=== PATIENT | female | born 1950 | race Caucasian/White ===

== ENCOUNTER 2016-11-08 22:32 | Emergency (ER) | payer MEDICARE, MEDICAID ==
[~2016-11-08] VITALS: Ht 165.1 cm; Wt 142.4 kg
[~2016-11-08 22:32] MED LIST: ACETAMINOPHEN A PO; ADVAIR DISKUS 21 DSK PO; APAP PO; AQUAZIDE H50 MG PO; BENADRYL25 MG PO; BENTYL20 MG PO; BIAXIN500 MG PO; CELEXA10 MG PO; CIPRO500 MG PO; CLONIDINE HCL0.1 MG PO; COUMADIN10 M1 PO; COUMADIN2 MG; COUMADIN3 M1; Coumadin3 MG PO; DILTIAZEM90 MG PO; DOXYCYCLINE100 M3 PO; DUONEB 3 MG/3 ML3 M1 INH; EES400 MG PO; FLUTICAS P0.05 MG/AC NAS; HYDR25T PO; HYDRODIURIL25 MG PO; LASIX40 MG PO; LORATADINE10 MG PO; LOVENOX150 MG/1 M SC; MAGNESIUM200 MG PO; MEDROL DOSEPAK4 MG PO; MOTION-TIME25 M2 PO; NEXIUM40 MG PO; PERCOCET 325 MG1 TA2 PO; POTASSIUM CHLO10 MEQ PO; POTASSIUM20 MEQ PO; PRADAXA150 MG PO; PRED-PAK 455 MG PO; PREDNISONE10 MG PO; PRILOSEC20 M2 PO; PRILOSEC20 MG PO; PRILOSEC40 M1 PO; PROAIR HFA0.09 MG/AC IH; PROAIR HFA8.5 GM PO; PROVERA10 MG PO; PROVERA2.5 MG PO; REQUIP0.5 MG PO; SPIRIVA18 MCG IH; SYNTHROID,LEVO25 MCG PO; TRAMADOL PO; VENTOLIN,PR2 MG/5 ML PO; VIBRAMYCIN100 MG PO; VICODIN 5/500 505 MG PO; VITAMIN D PO; ZANTAC 150150 MG PO; ZITHROMAX Z PA250 MG PO; ZOFRAN ODT4 MG SL; [UNRECOGNIZED DRUG - OTHER] PO
[2016-11-08 22:56] VITALS: BP 180/90
[2016-11-08] MEDS ORDERED: MAGNESIUM250 M1 PO (22:59)
[2016-11-08] MEDS ORDERED: FER-IRON75 MG/0.6 PO (23:00)
[2016-11-08] MEDS ORDERED: TYLENOL WITH CO1 TA1 PO (23:01)
[2016-11-08] MEDS ORDERED: CARAFATE1 G1 PO (23:01)
[2016-11-08 23:34] LABS: BILIRUBIN NEGATIVE (NEGATIVE); BLOOD NEGATIVE (NEGATIVE); CLARITY CLEAR (CLEAR); COLOR YELLOW (YELLOW); GLUCOSE NEGATIVE (NEGATIVE); KETONE NEGATIVE (NEGATIVE); LEUKO ESTERASE NEGATIVE (NEGATIVE); NITRITE NEGATIVE (NEGATIVE); PROTEIN NEGATIVE (NEGATIVE); UROBILINOGEN 0.2 E.U./dl (0.2-1.0)
[2016-11-08 23:42] LABS: BASO # 0.1 10*3/uL (0.0-0.1); BASO % 0.3 % (0.0-1.0); EOS # 0.1 10*3/uL (0.0-0.4); EOS % 0.5 % (1.0-4.0); HEMATOCRIT 41.8 % (37.0-47.0); HEMOGLOBIN 13.1 g/dl (12.0-16.0); IG # 0.1 10*3/uL (0.0-0.1); LYMPH # 2.5 10*3/uL (1.3-4.4); LYMPH % 16.4 % (27.0-41.0); MEAN CELL VOLUME 86.4 fl (81.0-99.0); MEAN CORPUSCULAR HGB 27.1 pg (27.0-31.0); MEAN CORPUSCULAR HGB CONC 31.3 g/dl (33.0-37.0); MEAN PLATELET VOLUME 9.7 fl (9.6-12.3); MONO # 1.1 10*3/uL (0.1-1.0); NEUT # 11.3 10*3/uL (2.3-7.9); NEUT % 75.2 % (47.0-73.0); PLATELET COUNT AUTOMATED 318 10*3/uL (130-400); RED BLOOD COUNT 4.84 10*6/uL (4.10-5.10); RED CELL DISTRI WIDTH 15.9 % (0-14.5); WHITE BLOOD COUNT 15.1 10*3/uL (4.8-10.8)
[2016-11-08 23:50] LABS: EPITHELIAL CELLS 15-20
[2016-11-08 23:51] LABS: RBC 0-2 rbc/hpf (0-2); URINE REFLEX COMMENT NO (NO)
[2016-11-09] MEDS ORDERED: Orphenadrine C100 MG PO (01:59)
[2016-11-09] MEDS ORDERED: PREDNISONE20 M1 PO (01:59)
[2016-11-09] MEDS ORDERED: NORCO 5-325 TA1 EACH PO (02:01)
== END 2016-11-09 02:48 | disposition home or self-care (01) ==
LOC: ED 22:32
PROVIDERS: Emergency Medicine Emergency Medical Services
DX: M54.31 Sciatica, right side (principal); J44.9 Chronic obstructive pulmonary disease, unspecified; G89.29 Other chronic pain; Z88.0 Allergy status to penicillin; Z88.1 Allergy status to other antibiotic agents; Z88.8 Allergy status to other drugs, medicaments and biological substances; Z79.899 Other long term (current) drug therapy

== ENCOUNTER 2017-01-05 18:12 | Inpatient (IN) | payer MEDICARE, MEDICAID ==
[2017-01-05] VITALS (9 sets, daily range): BP systolic 136–177; BP diastolic 71–108
[~2017-01-05] VITALS: Ht 165.1 cm; Wt 152.1 kg
--- NOTE | ~2017-01-05 | CON ---
[place], [place] REPORT OF CONSULTATION NAME: MAURO TOWNSEND UNIT #: [id number] ROOM: 402 DOCTOR: BALDEMAR RIOS MDHISH BIRTHDATE: [birth year] DOS: HISTORY OF PRESENT ILLNESS: I was not aware of this consultation, nobody had called me, came in my list today and I am seeing this patient. A 66-year-old female, very well known to me with a known history of deep venous thrombosis in the past, admitted with some atypical chest discomfort and also patient was severely hypertensive. Right now, her pressure is also elevated beyond 160/90, initially was 200/100 and she was having severe headache. She does have a low grade fever and wheezing and lightheaded, pain in the left precardium. She had a CTA, showed no evidence of pulmonary embolism. It showed small hiatal hernia, aortic stent ____. PAST MEDICAL HISTORY: Significant for DVT, history of pulmonary embolism, hypertension, protein-calorie malnutrition, morbid obesity. PAST SURGICAL HISTORY: History of right rotator cuff, thoracic aortic aneurysm repair. SOCIAL HISTORY: Not an alcoholic. Former smoker. FAMILY HISTORY: Positive for coronary artery disease. ALLERGIES: ENALAPRIL and PENICILLIN. HOME MEDICATIONS: Clonidine, diltiazem, magnesium, potassium, sucralfate and Spiriva. REVIEW OF SYSTEMS: CONSTITUTIONAL: No fever. No chills. HEENT: No visual disturbances or hearing problems. CARDIOVASCULAR: Does have chest discomfort and palpitations. RESPIRATORY: Positive for shortness of breath. GASTROINTESTINAL: No nausea. No vomiting. GENITOURINARY: No dysuria, hematuria. PHYSICAL EXAMINATION: VITAL SIGNS: Blood pressure was 170/80. HEENT: Unremarkable. NECK: Supple. No JVD. No thyromegaly. No lymphadenopathy. LUNGS: Clear. HEART: Sounds are regular. ABDOMEN: Obese. NEUROLOGIC: Stable. LABORATORY DATA: Electrolytes are normal. INR is 1.2. Hemoglobin ____, hematocrit 32.5. Chest x-ray showed aortic stent graft patent with emphysema. EKG, sinus with nonspecific ST-T changes. IMPRESSION: The patient with morbid obesity, hypertension, with thoracic aortic aneurysm repair, prior history of pulmonary embolism, with atypical chest [place], [place] REPORT OF CONSULTATION NAME: MAURO TOWNSEND UNIT #: [id number] ROOM: [facility] DOCTOR: RENETTA RIOS MD BIRTHDATE: [birth year] discomfort. RECOMMENDATIONS: Increase Catapres to 0.2 b.i.d. We will set her up for a Lexiscan Cardiolite stress test because of her risk factors and I will follow up. RENETTA RIOS MD CM:CONSTR:REPORT OF CONSULTATION 0800 01/07/17 1343 interface
--- NOTE | ~2017-01-05 | EKG ---
[place], [place] ELECTROCARDIOGRAM REPORT NAME: MAURO TOWNSEND UNIT #: [id number] ROOM: 402 DOCTOR: RENETTA RIOS MD BIRTHDATE: [birth year] DOS: 01/05/2017 TIME: 18:47:38 Normal sinus rhythm, normal axis, normal intervals. Nonspecific ST-T changes. RENETTA RIOS MD CM:EKGRPT:ELECTROCARDIOGRAM REPORT [id number] RENETTA RIOS MD
[~2017-01-05 18:12] MED LIST changes: +CARAFATE1 G1 PO; +FER-IRON75 MG/0.6 PO; +MAGNESIUM250 M1 PO; +NORCO 5-325 TA1 EACH PO; +Orphenadrine C100 MG PO; +PREDNISONE20 M1 PO; +PROAIR HFA8.5 GM INH; +TYLENOL WITH CO1 TA1 PO; -VENTOLIN,PR2 MG/5 ML PO
[2017-01-05] MEDS ORDERED: Synthroid,Levo50 MCG PO (18:33)
[2017-01-05 18:45] LABS: BASO % 0.4 % (0.0-1.0); EOS # 0.1 10*3/uL (0.0-0.4); EOS % 0.9 % (1.0-4.0); HEMATOCRIT 38.6 % (37.0-47.0); HEMOGLOBIN 12.5 g/dl (12.0-16.0); IG # 0.1 10*3/uL (0.0-0.1); LYMPH # 1.6 10*3/uL (1.3-4.4); LYMPH % 16.9 % (27.0-41.0); MEAN CELL VOLUME 86.4 fl (81.0-99.0); MEAN CORPUSCULAR HGB CONC 32.4 g/dl (33.0-37.0); MEAN PLATELET VOLUME 9.8 fl (9.6-12.3); MONO # 0.9 10*3/uL (0.1-1.0); MONO % 9.9 % (3.0-9.0); NEUT # 6.6 10*3/uL (2.3-7.9); NEUT % 71.4 % (47.0-73.0); PLATELET COUNT AUTOMATED 322 10*3/uL (130-400); RED BLOOD COUNT 4.47 10*6/uL (4.10-5.10); RED CELL DISTRI WIDTH 16.3 % (0-14.5); WHITE BLOOD COUNT 9.3 10*3/uL (4.8-10.8)
[2017-01-05 18:59] LABS: INTERNATIONAL NORM RATIO 1.2 (2.0-3.5); PROTHROMBIN TIME 12.5 SECONDS (9.0-12.4)
[2017-01-05 19:03] LABS: ALBUMIN 3.1 gm/dl (3.1-4.5); ALKALINE PHOSPHATASE 128 U/L (45-117); BILIRUBIN, TOTAL 0.3 mg/dl (0.2-1.0); BUN 15 mg/dl (7-24); CARBON DIOXIDE 29 mmol/L (21-32); CHLORIDE 106 mmol/L (98-107); EST GLOM FILT AFRICAN AMERICAN > 60 ml/min; GLUCOSE 102 mg/dL (65-99); MAGNESIUM 2.2 mg/dL (1.5-2.1); POTASSIUM 3.7 mmol/L (3.5-5.1); SGOT/AST 14 IU/L (3-35); SGPT/ALT 21 U/L (12-78); SODIUM 142 mmol/L (136-145); TOTAL PROTEIN 7.2 gm/dL (6.4-8.2)
[2017-01-05 19:04] LABS: TROPONIN I < 0.015 ng/ml (<0.045)
[2017-01-05] MEDS ORDERED: FEROSUL325 MG PO (23:55)
[2017-01-06 06:19] LABS: BASO % 0.4 % (0.0-1.0); EOS # 0.1 10*3/uL (0.0-0.4); EOS % 0.9 % (1.0-4.0); HEMATOCRIT 41.6 % (37.0-47.0); HEMOGLOBIN 12.9 g/dl (12.0-16.0); LYMPH # 1.6 10*3/uL (1.3-4.4); LYMPH % 17.9 % (27.0-41.0); MEAN CELL VOLUME 87.8 fl (81.0-99.0); MEAN CORPUSCULAR HGB 27.2 pg (27.0-31.0); MEAN PLATELET VOLUME 9.8 fl (9.6-12.3); MONO # 0.7 10*3/uL (0.1-1.0); NEUT # 6.5 10*3/uL (2.3-7.9); NEUT % 72.4 % (47.0-73.0); PLATELET COUNT AUTOMATED 336 10*3/uL (130-400); RED BLOOD COUNT 4.74 10*6/uL (4.10-5.10); RED CELL DISTRI WIDTH 16.5 % (0-14.5)
[2017-01-06 06:50] LABS: PROTHROMBIN TIME 11.1 SECONDS (9.0-12.4)
[2017-01-06 06:51] LABS: ALBUMIN 3.2 gm/dl (3.1-4.5); ALKALINE PHOSPHATASE 128 U/L (45-117); BILIRUBIN, TOTAL 0.2 mg/dl (0.2-1.0); BUN 13 mg/dl (7-24); CARBON DIOXIDE 28 mmol/L (21-32); CHLORIDE 106 mmol/L (98-107); EST GLOM FILT AFRICAN AMERICAN > 60 ml/min; FREE T4 0.91 ng/dl (0.76-1.46); GLUCOSE 106 mg/dL (65-99); MAGNESIUM 2.3 mg/dL (1.5-2.1); PHOSPHOROUS 3.1 mg/dL (2.5-4.9); POTASSIUM 3.9 mmol/L (3.5-5.1); SGOT/AST 14 IU/L (3-35); SGPT/ALT 21 U/L (12-78); SODIUM 141 mmol/L (136-145); TOTAL PROTEIN 7.7 gm/dL (6.4-8.2)
[2017-01-06 06:55] LABS: THYROID STIM HORMONE (HS) 0.736 uIU/ml (0.358-4.75)
[2017-01-06 07:05] LABS: HEMOGLOBIN A1c 6.9 % (4.8-5.6)
[2017-01-06 08:00] VITALS: BP 164/82
[2017-01-06 12:00] VITALS: BP 131/58
[2017-01-06 16:00] VITALS: BP 118/58
[2017-01-06 20:00] VITALS: BP 134/62
[2017-01-07] VITALS: BP 130/78
[2017-01-07 06:52] LABS: BASO % 0.4 % (0.0-1.0); EOS # 0.1 10*3/uL (0.0-0.4); HEMOGLOBIN 11.9 g/dl (12.0-16.0); LYMPH # 1.6 10*3/uL (1.3-4.4); LYMPH % 20.3 % (27.0-41.0); MEAN CELL VOLUME 87.7 fl (81.0-99.0); MEAN CORPUSCULAR HGB 28.2 pg (27.0-31.0); MEAN CORPUSCULAR HGB CONC 32.2 g/dl (33.0-37.0); MEAN PLATELET VOLUME 9.9 fl (9.6-12.3); MONO # 0.6 10*3/uL (0.1-1.0); MONO % 7.2 % (3.0-9.0); NEUT # 5.4 10*3/uL (2.3-7.9); NEUT % 70.7 % (47.0-73.0); PLATELET COUNT AUTOMATED 287 10*3/uL (130-400); RED BLOOD COUNT 4.22 10*6/uL (4.10-5.10); RED CELL DISTRI WIDTH 16.5 % (0-14.5); WHITE BLOOD COUNT 7.6 10*3/uL (4.8-10.8)
[2017-01-07 07:22] LABS: BUN 12 mg/dl (7-24); CARBON DIOXIDE 31 mmol/L (21-32); CHLORIDE 104 mmol/L (98-107); EST GLOM FILT AFRICAN AMERICAN > 60 ml/min; GLUCOSE 125 mg/dL (65-99); POTASSIUM 4.2 mmol/L (3.5-5.1); SODIUM 142 mmol/L (136-145)
[2017-01-07 08:00] VITALS: BP 164/90
[2017-01-07 12:00] VITALS: BP 156/82
[2017-01-07] MEDS ORDERED: CLONIDINE HCL0.2 MG PO (12:46)
[2017-01-07] MEDS ORDERED: D-1000 185 MG-11 TAB PO (12:47)
== END 2017-01-07 13:40 | disposition home or self-care (01) | DRG 206 ==
LOC: ED 18:12 → EDHOLD 22:23 → 4E 22:23
PROVIDERS: Emergency Medicine; Family Medicine; Internal Medicine Nephrology
DX: M94.0 Chondrocostal junction syndrome [Tietze] (principal); E44.0 Moderate protein-calorie malnutrition; R65.10 Systemic inflammatory response syndrome (SIRS) of non-infectious origin without acute organ dysfunction; Z68.43 Body mass index [BMI] 50.0-59.9, adult; E83.41 Hypermagnesemia; E66.01 Morbid (severe) obesity due to excess calories; J44.9 Chronic obstructive pulmonary disease, unspecified; R73.9 Hyperglycemia, unspecified; I10 Essential (primary) hypertension; E03.9 Hypothyroidism, unspecified; K21.9 Gastro-esophageal reflux disease without esophagitis; K44.9 Diaphragmatic hernia without obstruction or gangrene; G25.81 Restless legs syndrome; Z88.0 Allergy status to penicillin; Z88.1 Allergy status to other antibiotic agents; Z88.8 Allergy status to other drugs, medicaments and biological substances; Z86.718 Personal history of other venous thrombosis and embolism; Z86.711 Personal history of pulmonary embolism; Z90.721 Acquired absence of ovaries, unilateral; Z87.891 Personal history of nicotine dependence; Z82.49 Family history of ischemic heart disease and other diseases of the circulatory system; Z79.51 Long term (current) use of inhaled steroids; Z79.899 Other long term (current) drug therapy; Z86.79 Personal history of other diseases of the circulatory system; E55.9 Vitamin D deficiency, unspecified

== ENCOUNTER → 2017-01-17 | Outpatient (CLI) | payer MEDICARE, MEDICAID ==
[~2017-01-17] MED LIST changes: +CLONIDINE HCL0.2 MG PO; +D-1000 185 MG-11 TAB PO; +FEROSUL325 MG PO; +Synthroid,Levo50 MCG PO
--- NOTE | ~2017-01-17 | ST ---
[place], [place] EXERCISE STRESS TEST REPORT NAME: MAURO TOWNSEND UNIT #: [id number] ROOM: DOCTOR: RENETTA RIOS MD BIRTHDATE: [birth year] DOS: 01/17/2017 LEXISCAN PORTION OF THE LEXISCAN CARDIOLITE Baseline cardiogram, sinus rhythm with nonspecific ST-T changes, 0.4 mg of Lexiscan, duration of 10 seconds of a 1-minute test duration with Lexiscan, no new EKG changes. The patient had some nausea and abdominal sensation, but no obvious chest pain, no EKG changes. Blood pressure and heart rate response was normal. Nuclear images will be reported separately. RENETTA RIOS MD CM:STRESS:EXERCISE STRESS TEST REPORT [id number] NOLVIA RIOS MD
== END | disposition home or self-care (01) ==
LOC: CARD 02:11
DX: R53.81 Other malaise (principal); R07.2 Precordial pain

== ENCOUNTER → 2017-02-14 | Outpatient (CLI) | payer MEDICARE, MEDICAID ==
[2017-02-14 11:14] LABS: BASO % 0.4 % (0.0-1.0); EOS # 0.1 10*3/uL (0.0-0.4); EOS % 0.5 % (1.0-4.0); HEMATOCRIT 42.2 % (37.0-47.0); HEMOGLOBIN 13.1 g/dl (12.0-16.0); LYMPH # 1.7 10*3/uL (1.3-4.4); LYMPH % 18.9 % (27.0-41.0); MEAN CELL VOLUME 89.6 fl (81.0-99.0); MEAN CORPUSCULAR HGB 27.8 pg (27.0-31.0); MEAN PLATELET VOLUME 10.1 fl (9.6-12.3); MONO # 0.5 10*3/uL (0.1-1.0); MONO % 5.9 % (3.0-9.0); NEUT # 6.7 10*3/uL (2.3-7.9); NEUT % 73.8 % (47.0-73.0); PLATELET COUNT AUTOMATED 289 10*3/uL (130-400); RED BLOOD COUNT 4.71 10*6/uL (4.10-5.10); RED CELL DISTRI WIDTH 15.2 % (0-14.5); WHITE BLOOD COUNT 9.2 10*3/uL (4.8-10.8)
[2017-02-14 11:29] LABS: ALKALINE PHOSPHATASE 143 U/L (45-117); BUN 20 mg/dl (7-24); CHLORIDE 103 mmol/L (98-107); CHOLESTEROL 170 mg/dL (<200); CREATININE 0.82 mg/dL (0.55-1.02); HDL CHOLESTEROL 79 mg/dl (40-60); LDL CHOLESTEROL 76 mg/dL (9-159); POTASSIUM 4.1 mmol/L (3.5-5.1); SGOT/AST 12 IU/L (3-35); SGPT/ALT 30 U/L (12-78); SODIUM 141 mmol/L (136-145); TRIGLYCERIDES 77 mg/dl (<150); VLDL CHOLESTEROL 15 mg/dL (6-40)
== END | disposition home or self-care (01) ==
LOC: LAB 10:28
PROVIDERS: Nurse Practitioner Family
DX: E03.9 Hypothyroidism, unspecified (principal); E78.4 Other hyperlipidemia; I10 Essential (primary) hypertension

== ENCOUNTER → 2017-03-16 | Outpatient (CLI) | payer MEDICARE, MEDICAID ==
[2017-03-16 15:33] LABS: BASO % 0.6 % (0.0-1.0); BILIRUBIN NEGATIVE (NEGATIVE); BLOOD NEGATIVE (NEGATIVE); CLARITY CLOUDY (CLEAR); COLOR YELLOW (YELLOW); EOS # 0.1 10*3/uL (0.0-0.4); EOS % 0.7 % (1.0-4.0); GLUCOSE NEGATIVE (NEGATIVE); HEMOGLOBIN 12.8 g/dl (12.0-16.0); KETONE NEGATIVE (NEGATIVE); LEUKO ESTERASE NEGATIVE (NEGATIVE); LYMPH # 1.6 10*3/uL (1.3-4.4); LYMPH % 21.7 % (27.0-41.0); MEAN CELL VOLUME 89.5 fl (81.0-99.0); MEAN CORPUSCULAR HGB 28.6 pg (27.0-31.0); MEAN PLATELET VOLUME 9.6 fl (9.6-12.3); MONO # 0.5 10*3/uL (0.1-1.0); NEUT % 69.7 % (47.0-73.0); NITRITE NEGATIVE (NEGATIVE); PLATELET COUNT AUTOMATED 307 10*3/uL (130-400); RED BLOOD COUNT 4.47 10*6/uL (4.10-5.10); RED CELL DISTRI WIDTH 14.3 % (0-14.5); SPECIFIC GRAVITY >= 1.030 (1.005-1.030); UROBILINOGEN 0.2 E.U./dl (0.2-1.0); WHITE BLOOD COUNT 7.1 10*3/uL (4.8-10.8)
[2017-03-16 15:42] LABS: BACTERIA 2+; EPITHELIAL CELLS 16-20; MUCOUS TRACE; RBC 0-2 rbc/hpf (0-2)
[2017-03-16 15:59] LABS: BUN 13 mg/dl (7-24); CHLORIDE 102 mmol/L (98-107); CREATININE 0.98 mg/dL (0.55-1.02); MAGNESIUM 2.2 mg/dL (1.5-2.1); POTASSIUM 3.7 mmol/L (3.5-5.1); SODIUM 140 mmol/L (136-145); URIC ACID 6.1 mg/dL (2.6-6.0)
[2017-03-17 09:06] LABS: CREATININE,URINE 180.9 mg/dL (Not Estab.); MICRO ALBUMIN/CRE RATIO 9.7 (0.0-30.0)
== END | disposition home or self-care (01) ==
LOC: LAB 14:59
PROVIDERS: Internal Medicine Nephrology
DX: I10 Essential (primary) hypertension (principal); E87.6 Hypokalemia; E87.79 Other fluid overload; R80.9 Proteinuria, unspecified; E55.9 Vitamin D deficiency, unspecified; N17.9 Acute kidney failure, unspecified

== ENCOUNTER 2017-04-08 00:47 | Inpatient (IN) | payer MEDICARE, MEDICAID ==
[2017-04-08] VITALS (7 sets, daily range): BP systolic 110–144; BP diastolic 52–79
[~2017-04-08] VITALS: Ht 162.5 cm; Wt 150.3 kg
[2017-04-08 01:05] LABS: BASO % 0.5 % (0.0-1.0); EOS # 0.1 10*3/uL (0.0-0.4); EOS % 0.6 % (1.0-4.0); HEMATOCRIT 38.8 % (37.0-47.0); HEMOGLOBIN 12.4 g/dl (12.0-16.0); LYMPH # 0.8 10*3/uL (1.3-4.4); LYMPH % 9.6 % (27.0-41.0); MEAN CELL VOLUME 87.4 fl (81.0-99.0); MEAN CORPUSCULAR HGB 27.9 pg (27.0-31.0); MEAN PLATELET VOLUME 9.5 fl (9.6-12.3); MONO # 0.4 10*3/uL (0.1-1.0); MONO % 4.4 % (3.0-9.0); NEUT # 6.9 10*3/uL (2.3-7.9); NEUT % 84.5 % (47.0-73.0); PLATELET COUNT AUTOMATED 351 10*3/uL (130-400); RED BLOOD COUNT 4.44 10*6/uL (4.10-5.10); RED CELL DISTRI WIDTH 14.3 % (0-14.5); WHITE BLOOD COUNT 8.1 10*3/uL (4.8-10.8)
--- NOTE | 2017-04-08 01:09 | NUR ---
CRITICAL LA OF 2.[address] GAMEZ
[2017-04-08 01:14] LABS: INTERNATIONAL NORM RATIO 1.2 (2.0-3.5)
[2017-04-08 01:23] LABS: ALKALINE PHOSPHATASE 118 U/L (45-117); BUN 7 mg/dl (7-24); CHLORIDE 103 mmol/L (98-107); CREATININE 0.88 mg/dL (0.55-1.02); LIPASE 101 U/L (73-393); POTASSIUM 4.2 mmol/L (3.5-5.1); SGOT/AST 12 IU/L (3-35); SGPT/ALT 16 U/L (12-78); SODIUM 139 mmol/L (136-145); TOTAL PROTEIN 7.2 gm/dL (6.4-8.2); TROPONIN I < 0.015 ng/ml (<0.045)
[2017-04-08 01:28] LABS: ABG BASE EXCESS 2.1 mmol/L (-2.0-2.0); ABG HCO3 26.1 mmol/l (22-26); ABG O2 SATURATION 99.1 % (95-97); ARTERIAL BLOOD GAS PCO2 39.3 mmHg (35-45); ARTERIAL BLOOD GAS PH 7.434 (7.35-7.45)
--- NOTE | 2017-04-08 01:51 | NUR ---
PATIENT GIVEN A WARM BLANKET. NO OTHER NEEDS AT THIS TIME
--- NOTE | 2017-04-08 02:45 | NUR ---
A 66, admitted to , under the services of MONIQUE Dahl DO with a diagnosis of COPD. Chief complaint is SHORTNESS OF BREATH. Patient arrived via bed from ER. Monitor applied. Initial assessment completed. Vital signs taken and recorded. MONIQUE DAHL DO notified of admission to the unit. Orders received. See assessment for past medical history, medications and allergies. Patient and/or family oriented to unit. [facility]. Clothing/patient valuable form completed. TANESHA ESCUDERO
--- NOTE | 2017-04-08 03:01 | NUR ---
MED REC UPDATED PER LIST PROVIDED BY PATIENT
--- NOTE | 2017-04-08 03:30 | NUR ---
DR. HOLLIS CALLED AND ASKED ABOUT BOLUS X3 ORDER. DR HOLLIS CLEARIFIED ORDER AND STATED DUE TO HER SIZE AND PROTOCAL THAT THE ORDER WAS CORRECT. WILL ASSESS PATIENT DURING EACH BOLUS.
--- NOTE | 2017-04-08 08:00 | NUR ---
PT SITTING AT SIDE OF BED. 3RD IV BOLUS BAG INFUSING. PT STATE FINGERS ARE STARTING TO FEEL A "LITTLE TIGHT". WILL CONTINUE TO MONITOR FOR FLUID OVERLOAD. PT STATES BREATHING HAS IMPROVED SINCE ADMISSION, COUGHING SOME THIS MORNING NON PRODUCTIVE AT THIS TIME. PT COMPLAINS OF HEADACHE, HOWEVER WISHES TO WAIT UNTIL AFTER BREAKFAST TO TAKE ANY TYLENOL. PT STATES NO OTHER NEEDS AT THIS TIME.
--- NOTE | 2017-04-08 08:31 | NUR ---
Shift chart check completed.
--- NOTE | 2017-04-08 09:43 | NUR ---
pt complains of headache, tylenol given. see mar. will monitor for effectiveness.
--- NOTE | 2017-04-08 09:45 | NUR ---
resident in to see patient. notified that patient complains of hand edema. aware received 3 liters ns bolus and now has ivf at 80/hour
--- NOTE | 2017-04-08 10:45 | NUR ---
PT STATE TYLENOL EFFECTIVE FOR HEADACHE
--- NOTE | 2017-04-08 12:54 | NUR ---
PT COMPLAINS OF ANXIETY AND MUSCLE ACHES, PRN GIVEN. SEE MAR
--- NOTE | 2017-04-08 13:28 | NUR ---
PT SITTING AT SIDE OF BED. IVF STOPPED PER ORDER. PT AWARE TO NOTIFY STAFF IF EDEMA IN HANDS WORSENS. SLIGHT EDEMA NOTED IN LOWER EXTREMITIES, PT STATED SHE WILL ELEVATE LEGS IN BED FOR NOW. PT STATES NO NEEDS AT THIS TIME.
--- NOTE | 2017-04-08 20:22 | NUR ---
prn zofran given for pt report nausea.
--- NOTE | 2017-04-08 21:00 | NUR ---
prn tylenol given for 6/10 chest soreness r/t coughing.
--- NOTE | 2017-04-08 21:00 | NUR ---
prn restoril given for sleep
--- NOTE | 2017-04-08 21:23 | NUR ---
prn zofran effective for nausea, pt denies nausea.
--- NOTE | 2017-04-08 22:00 | NUR ---
prn restoril effective, pt resting comfortably.
--- NOTE | 2017-04-08 22:00 | NUR ---
prn pain med effective, pt rates her pain 3/10.
[2017-04-09] VITALS: BP 141/54
[2017-04-09 06:04] LABS: HEMATOCRIT 35.9 % (37.0-47.0); HEMOGLOBIN 11.2 g/dl (12.0-16.0); MEAN CELL VOLUME 88.6 fl (81.0-99.0); MEAN CORPUSCULAR HGB 27.7 pg (27.0-31.0); MEAN CORPUSCULAR HGB CONC 31.2 g/dl (33.0-37.0); MEAN PLATELET VOLUME 9.9 fl (9.6-12.3); PLATELET COUNT AUTOMATED 320 10*3/uL (130-400); RED BLOOD COUNT 4.05 10*6/uL (4.10-5.10); RED CELL DISTRI WIDTH 14.6 % (0-14.5)
[2017-04-09 06:34] LABS: BUN 14 mg/dl (7-24); CHLORIDE 109 mmol/L (98-107); CHOLESTEROL 145 mg/dL (<200); CREATININE 0.93 mg/dL (0.55-1.02); HDL CHOLESTEROL 70 mg/dl (40-60); LDL CHOLESTEROL 61 mg/dL (9-159); PHOSPHOROUS 2.5 mg/dL (2.5-4.9); SODIUM 144 mmol/L (136-145); TRIGLYCERIDES 71 mg/dl (<150); VLDL CHOLESTEROL 14 mg/dL (6-40)
[2017-04-09 06:54] LABS: PLATELET SUFFICIENCY NORMAL (NORMAL); TOTAL CELLS COUNTED 100 #CELLS
[2017-04-09 08:28] VITALS: BP 144/70
--- NOTE | 2017-04-09 12:30 | NUR ---
PT COMPLAINS OF A BLISTER ON THE TIP OF HER TONGUE. A WHITE RAISED AREA NOTED. WILL CONTINUE TO MONITOR. PT STATES THAT AT HOME AFTER SHE TAKES HER SCHEDULED MEDICAIONS (USUALLY HER SYNTHROID) A BLISTER WILL APPEAR FOR A FEW HOURS AND THEN GO AWAY. WILL CONTINUE TO MONITOR. NO COMPLAINS OF BREATHING ISSUES, NO TONGUE SWELLING NOTED.
[2017-04-09 12:56] VITALS: BP 108/59
--- NOTE | 2017-04-09 14:17 | NUR ---
pt complains of not having a bowel movement for 2 days, requested dulcolax. given. see aug. blister on patients lip resolved. no needs at this time
[2017-04-09 16:00] VITALS: BP 138/78
[2017-04-09 20:00] VITALS: BP 146/71
--- NOTE | 2017-04-09 21:45 | NUR ---
PRN RESTORIL GIVEN FOR PT REPORT SLEEPLESSNESS.
--- NOTE | 2017-04-09 21:45 | NUR ---
PRN PAIN MED GIVEN FOR PT REPORT 6/10 CHEST SORENESS R/T COUGH.
--- NOTE | 2017-04-09 22:35 | NUR ---
PRN ZOFRAN GIVEN FOR PT REPORT OF NAUSEA.
--- NOTE | 2017-04-09 22:43 | NUR ---
PRN PAIN MED EFFECTIVE, PT REPORTS 3/10 CHEST SORENESS R/T COUGH.
--- NOTE | 2017-04-09 22:43 | NUR ---
PRN RESTORIL EFFECTIVE, PT RESTING COMFORTABLY.
--- NOTE | 2017-04-09 23:27 | NUR ---
PRN ZOFRAN EFFECTIVE, PT DENIES NAUSEA.
[2017-04-10] VITALS: BP 110/45
--- NOTE | 2017-04-10 05:35 | NUR ---
PRN TESSALON PEARLS GIVEN FOR COUGH.
[2017-04-10 06:11] LABS: BUN 22 mg/dl (7-24); CHLORIDE 107 mmol/L (98-107); CREATININE 0.95 mg/dL (0.55-1.02); POTASSIUM 4.5 mmol/L (3.5-5.1); SODIUM 141 mmol/L (136-145)
[2017-04-10 06:14] LABS: HEMATOCRIT 34.1 % (37.0-47.0); HEMOGLOBIN 10.6 g/dl (12.0-16.0); MEAN CELL VOLUME 89.7 fl (81.0-99.0); MEAN CORPUSCULAR HGB 27.9 pg (27.0-31.0); MEAN CORPUSCULAR HGB CONC 31.1 g/dl (33.0-37.0); MEAN PLATELET VOLUME 10.1 fl (9.6-12.3); PLATELET COUNT AUTOMATED 312 10*3/uL (130-400); RED CELL DISTRI WIDTH 14.8 % (0-14.5); WHITE BLOOD COUNT 14.7 10*3/uL (4.8-10.8)
[2017-04-10 06:43] LABS: PLATELET SUFFICIENCY NORMAL (NORMAL); TOTAL CELLS COUNTED 100 #CELLS
[2017-04-10 08:00] VITALS: BP 138/79
[2017-04-10 12:00] VITALS: BP 134/74
[2017-04-10] MEDS ORDERED: DOXYCYCLINE100 MG PO (14:05)
[2017-04-10] MEDS ORDERED: PREDNISONE10 MG PO (14:05)
[2017-04-10] MEDS ORDERED: VITAMIN D-32000 UNIT PO (14:05)
[2017-04-10] MEDS ORDERED: BENZONATATE100 M1 PO (14:05)
--- NOTE | 2017-04-10 14:20 | NUR ---
TESSALON PEARLS GIVEN AT THIS TIME FOR COUGH REQUESTED. WILL CONT TO MONITOR.
--- NOTE | 2017-04-10 15:17 | NUR ---
PT DISCHARGED AT THIS TIME. IV REMOVED AND PRESSURE DRESSING APPLIED. HEART MONITOR RETURNED TO FLOOR. VERBALIZED UNDERSTANDING OF DISCHARGED INSTRUCTIONS.
== END 2017-04-10 15:17 | disposition home or self-care (01) | DRG 871 ==
LOC: ED 00:47 → 4E 02:19 → EDHOLD 02:19 → 4E 02:27
PROVIDERS: Emergency Medicine Emergency Medical Services; Student in an Organized Health Care Education/Training Program; ADMIT Internal Medicine
DX: A41.9 Sepsis, unspecified organism (principal); J18.9 Pneumonia, unspecified organism; E44.0 Moderate protein-calorie malnutrition; J96.10 Chronic respiratory failure, unspecified whether with hypoxia or hypercapnia; E87.2 Acidosis; Z99.81 Dependence on supplemental oxygen; J44.0 Chronic obstructive pulmonary disease with (acute) lower respiratory infection; J44.1 Chronic obstructive pulmonary disease with (acute) exacerbation; Z68.43 Body mass index [BMI] 50.0-59.9, adult; E66.01 Morbid (severe) obesity due to excess calories; R65.20 Severe sepsis without septic shock; I10 Essential (primary) hypertension; K21.9 Gastro-esophageal reflux disease without esophagitis; G25.81 Restless legs syndrome; E03.9 Hypothyroidism, unspecified; Z88.0 Allergy status to penicillin; Z88.8 Allergy status to other drugs, medicaments and biological substances; Z79.899 Other long term (current) drug therapy; Z86.718 Personal history of other venous thrombosis and embolism; Z90.722 Acquired absence of ovaries, bilateral; Z87.891 Personal history of nicotine dependence; Z82.49 Family history of ischemic heart disease and other diseases of the circulatory system; Z83.3 Family history of diabetes mellitus; Z98.51 Tubal ligation status

== ENCOUNTER 2017-04-28 16:24 | Emergency (ER) | payer MEDICARE, MEDICAID ==
[~2017-04-28] VITALS: Ht 162.5 cm; Wt 152.0 kg
[~2017-04-28 16:24] MED LIST changes: +BENZONATATE100 M1 PO; +DOXYCYCLINE100 MG PO; +VITAMIN D-32000 UNIT PO
[2017-04-28 17:47] LABS: BASO % 0.4 % (0.0-1.0); EOS # 0.1 10*3/uL (0.0-0.4); EOS % 1.5 % (1.0-4.0); HEMATOCRIT 39.4 % (37.0-47.0); HEMOGLOBIN 12.7 g/dl (12.0-16.0); LYMPH # 1.3 10*3/uL (1.3-4.4); LYMPH % 18.5 % (27.0-41.0); MEAN CORPUSCULAR HGB CONC 32.2 g/dl (33.0-37.0); MEAN PLATELET VOLUME 9.6 fl (9.6-12.3); MONO # 0.5 10*3/uL (0.1-1.0); NEUT % 72.3 % (47.0-73.0); PLATELET COUNT AUTOMATED 288 10*3/uL (130-400); RED BLOOD COUNT 4.53 10*6/uL (4.10-5.10); RED CELL DISTRI WIDTH 14.9 % (0-14.5); WHITE BLOOD COUNT 6.9 10*3/uL (4.8-10.8)
[2017-04-28 18:00] LABS: ALBUMIN 3.3 gm/dl (3.1-4.5); ALKALINE PHOSPHATASE 115 U/L (45-117); BUN 6 mg/dl (7-24); CHLORIDE 99 mmol/L (98-107); CREATININE 0.84 mg/dL (0.55-1.02); POTASSIUM 3.6 mmol/L (3.5-5.1); SGOT/AST 17 IU/L (3-35); SGPT/ALT 19 U/L (12-78); SODIUM 137 mmol/L (136-145); TOTAL PROTEIN 7.4 gm/dL (6.4-8.2)
[2017-04-28 19:09] VITALS: BP 151/85
[2017-04-28] MEDS ORDERED: DICYCLOMINE HCL20 MG PO (20:16)
== END 2017-04-28 20:18 | disposition home or self-care (01) ==
LOC: ED 16:24
PROVIDERS: Emergency Medicine
DX: K57.90 Diverticulosis of intestine, part unspecified, without perforation or abscess without bleeding (principal); I10 Essential (primary) hypertension; K21.9 Gastro-esophageal reflux disease without esophagitis; J45.909 Unspecified asthma, uncomplicated; E03.9 Hypothyroidism, unspecified; Z86.718 Personal history of other venous thrombosis and embolism; J44.9 Chronic obstructive pulmonary disease, unspecified; E66.01 Morbid (severe) obesity due to excess calories; Z88.8 Allergy status to other drugs, medicaments and biological substances; Z88.0 Allergy status to penicillin; Z88.1 Allergy status to other antibiotic agents; Z79.899 Other long term (current) drug therapy; Z87.891 Personal history of nicotine dependence

== ENCOUNTER → 2017-05-01 | Outpatient (CLI) | payer MEDICARE, MEDICAID ==
[~2017-05-01] MED LIST changes: +DICYCLOMINE HCL20 MG PO
[2017-05-01 15:03] LABS: HEMATOCRIT 39.8 % (37.0-47.0); HEMOGLOBIN 13.2 g/dl (12.0-16.0); MEAN CELL VOLUME 84.1 fl (81.0-99.0); MEAN CORPUSCULAR HGB 27.9 pg (27.0-31.0); MEAN CORPUSCULAR HGB CONC 33.2 g/dl (33.0-37.0); MEAN PLATELET VOLUME 9.3 fl (9.6-12.3); RED BLOOD COUNT 4.73 10*6/uL (4.10-5.10); RED CELL DISTRI WIDTH 14.6 % (0-14.5); WHITE BLOOD COUNT 6.2 10*3/uL (4.8-10.8)
[2017-05-01 15:20] LABS: ALBUMIN 3.4 gm/dl (3.1-4.5); ALKALINE PHOSPHATASE 124 U/L (45-117); BUN 9 mg/dl (7-24); CHLORIDE 91 mmol/L (98-107); CHOLESTEROL 154 mg/dL (<200); CREATININE 0.94 mg/dL (0.55-1.02); HDL CHOLESTEROL 76 mg/dl (40-60); LDL CHOLESTEROL 55 mg/dL (9-159); POTASSIUM 3.3 mmol/L (3.5-5.1); SGOT/AST 17 IU/L (3-35); SGPT/ALT 19 U/L (12-78); SODIUM 130 mmol/L (136-145); TOTAL PROTEIN 7.4 gm/dL (6.4-8.2); TRIGLYCERIDES 116 mg/dl (<150); VLDL CHOLESTEROL 23 mg/dL (6-40)
== END | disposition home or self-care (01) ==
LOC: LAB 14:29
PROVIDERS: Family Medicine
DX: I10 Essential (primary) hypertension (principal); E78.00 Pure hypercholesterolemia, unspecified; E55.9 Vitamin D deficiency, unspecified

== ENCOUNTER 2017-07-05 16:58 | Emergency (ER) | payer MEDICARE, MEDICAID ==
[~2017-07-05] VITALS: Ht 160 cm; Wt 149.7 kg
[2017-07-05 17:07] VITALS: BP 143/72
[2017-07-05 17:42] LABS: BASO % 0.4 % (0.0-1.0); EOS # 0.1 10*3/uL (0.0-0.4); EOS % 0.9 % (1.0-4.0); HEMATOCRIT 39.5 % (37.0-47.0); HEMOGLOBIN 12.8 g/dl (12.0-16.0); LYMPH # 1.5 10*3/uL (1.3-4.4); LYMPH % 21.2 % (27.0-41.0); MEAN CELL VOLUME 86.8 fl (81.0-99.0); MEAN CORPUSCULAR HGB 28.1 pg (27.0-31.0); MEAN CORPUSCULAR HGB CONC 32.4 g/dl (33.0-37.0); MEAN PLATELET VOLUME 9.5 fl (9.6-12.3); MONO # 0.5 10*3/uL (0.1-1.0); MONO % 7.9 % (3.0-9.0); NEUT # 4.7 10*3/uL (2.3-7.9); NEUT % 69.2 % (47.0-73.0); PLATELET COUNT AUTOMATED 360 10*3/uL (130-400); RED BLOOD COUNT 4.55 10*6/uL (4.10-5.10); RED CELL DISTRI WIDTH 15.3 % (0-14.5); WHITE BLOOD COUNT 6.8 10*3/uL (4.8-10.8)
[2017-07-05 17:49] LABS: INTERNATIONAL NORM RATIO 1.1 (2.0-3.5)
[2017-07-05 17:53] LABS: BUN 11 mg/dl (7-24); CHLORIDE 102 mmol/L (98-107); CREATININE 1.02 mg/dL (0.55-1.02); SODIUM 141 mmol/L (136-145)
[2017-07-05] MEDS ORDERED: CLINDAMYCIN HC300 MG PO (19:07)
[2017-07-10] MEDS ORDERED: GABAPENTIN100 M2 PO (11:57)
[2017-07-10] MEDS ORDERED: PRADAXA150 MG PO (11:58)
[2017-07-10] MEDS ORDERED: VITAMIN D-32000 UNI1 PO (12:02)
[2017-07-10] MEDS ORDERED: SUNMARK MAGNES250 MG PO (12:03)
[2017-07-10] MEDS ORDERED: IRON325 M1 PO (12:03)
== END 2017-07-05 19:39 | disposition home or self-care (01) ==
LOC: ED 16:58
PROVIDERS: Physician Assistant
DX: L03.116 Cellulitis of left lower limb (principal); Z86.718 Personal history of other venous thrombosis and embolism; Z88.0 Allergy status to penicillin; Z88.1 Allergy status to other antibiotic agents; Z88.8 Allergy status to other drugs, medicaments and biological substances; Z79.899 Other long term (current) drug therapy; Z87.891 Personal history of nicotine dependence

== ENCOUNTER → 2017-07-12 | Day surgery (SDC) | payer MEDICARE, MEDICAID ==
[~2017-07-12] VITALS: Ht 160 cm; Wt 149.7 kg
[~2017-07-12] MED LIST changes: +CLINDAMYCIN HC300 MG PO; +GABAPENTIN100 M2 PO; +IRON325 M1 PO; +SUNMARK MAGNES250 MG PO; +VITAMIN D-32000 UNI1 PO
--- NOTE | ~2017-07-12 | O ---
[place], [place] OPERATIVE NOTE NAME: MAURO TOWNSEND UNIT #: [id number] ROOM: DOCTOR: GUY VARGAS,[facility] BIRTHDATE: [birth year] DOS: 07/12/2017 GASTROENDOSCOPIC REPORT HISTORY OF PRESENT ILLNESS: A 67-year-old patient, who has presented with chief complaint of abdominal pain, change in bowel habit, diarrhea, and at times constipation to follow as well as dyspepsia, on PPI therapy. PAST SURGICAL HISTORY: Aortic stent and oophorectomy and left tubal ligation. PAST MEDICAL HISTORY: Morbid obesity, pulmonary embolism, hypertension, hypothyroidism, and COPD. ALLERGIES: TO PENICILLIN, AVELOX, ENALAPRIL. FAMILY HISTORY: Noncontributory. SOCIAL HISTORY: Stopped smoking 9 years ago. Nonalcohol consumer. PROCEDURE: Today's procedure part of investigation is panendoscopy and colonoscopy. PREMEDICATION: Versed and Diprivan. SCOPE: Olympus forward-viewing gastroscope Q10 video. REPORT: After putting the patient in left lateral position and application of lubricant to the scope, the scope was introduced. Thereafter, under direct visualization, I advanced through the length of esophagus without difficulty. Large hiatal hernia was noticed. Bile reflux gastritis identified. Moderate gastritis seen particularly expressed in antrum. Biopsy was obtained. Duodenal bulb, second and third part within normal limit. The patient was gradually extubated and tolerated the procedure well. IMPRESSION: Large hiatal hernia, gastritis, bile reflux. PLAN AND DISCUSSION: Antireflux measures, avoiding greasy fried food. Continuation with PPI, omeprazole therapy 20 mg daily. We are going to proceed with colonoscopic assessment. GASTROENDOSCOPIC COLONOSCOPY INDICATION: Change in bowel habit, diarrhea, and constipation. PROCEDURE: Today's procedure part of investigation is colonoscopy. PREMEDICATION: Versed and Diprivan. SCOPE: Olympus folding colonoscope 10L video. [place], [place] OPERATIVE NOTE NAME: MAURO TOWNSEND UNIT #: [id number] ROOM: DOCTOR: GUY VARGAS,[facility] BIRTHDATE: [birth year] REPORT: After putting the patient in left lateral position, application of lubricant to the scope, the scope was introduced. Thereafter, under direct visualization, advanced through the length of colon without difficulty. Severe diverticulosis of colon was identified. Base of the cecum explored, appendiceal orifice identified, ileocecal valve was defined. Scope was withdrawn back to the rectal pouch. Sessile polypoid lesion with piecemeal polypectomy removed. The patient extubated, tolerated procedure well. IMPRESSION: Severe diverticulosis of colon, sessile colonic polyp of rectal pouch, status post piecemeal polypectomy. PLAN: High fiber fruit diet. ACTIVITY: Ad connie. The patient advised to decrease the calorie intake as well as avoiding entirely carbohydrate and greasy fried food and clinical reassessment. Thank you very much indeed for your kind referral. Photographic series have been attached to the chart for future reference and records. HEATHER TOVAR MD CM:OPRECORD:OPERATIVE NOTE 1117 [id number] NLOVIA TOVAR MD 07/12/17 1221 interface
[2017-07-12 10:00] VITALS: BP 123/65
[2017-07-12 11:12] VITALS: BP 140/117
[2017-07-12 11:27] VITALS: BP 94/45
[2017-07-12 11:45] VITALS: BP 114/64
== END ==
LOC: SDC 07-10 08:45
DX: K62.1 Rectal polyp (principal); K57.30 Diverticulosis of large intestine without perforation or abscess without bleeding; K29.50 Unspecified chronic gastritis without bleeding; Z98.51 Tubal ligation status; K44.9 Diaphragmatic hernia without obstruction or gangrene; K21.9 Gastro-esophageal reflux disease without esophagitis; Z98.890 Other specified postprocedural states; Z88.0 Allergy status to penicillin; Z79.899 Other long term (current) drug therapy; Z87.891 Personal history of nicotine dependence; J44.9 Chronic obstructive pulmonary disease, unspecified; I10 Essential (primary) hypertension; Z86.718 Personal history of other venous thrombosis and embolism; M19.90 Unspecified osteoarthritis, unspecified site; Z82.49 Family history of ischemic heart disease and other diseases of the circulatory system

== ENCOUNTER → 2017-08-01 | Outpatient (CLI) | payer MEDICARE, MEDICAID | END | disposition home or self-care (01) | LOC: US 15:40 | DX: M79.605 Pain in left leg (principal); R60.0 Localized edema ==

== ENCOUNTER → 2017-09-07 | Outpatient (CLI) | payer MEDICARE, MEDICAID ==
[2017-09-07 12:04] LABS: BASO # 0.1 10*3/uL (0.0-0.1); BASO % 0.5 % (0.0-1.0); EOS # 0.1 10*3/uL (0.0-0.4); EOS % 0.9 % (1.0-4.0); HEMATOCRIT 42.3 % (37.0-47.0); LYMPH # 2.4 10*3/uL (1.3-4.4); LYMPH % 21.6 % (27.0-41.0); MEAN CELL VOLUME 86.7 fl (81.0-99.0); MEAN CORPUSCULAR HGB 26.6 pg (27.0-31.0); MEAN CORPUSCULAR HGB CONC 30.7 g/dl (33.0-37.0); MEAN PLATELET VOLUME 9.8 fl (9.6-12.3); MONO # 0.7 10*3/uL (0.1-1.0); MONO % 6.5 % (3.0-9.0); NEUT # 7.8 10*3/uL (2.3-7.9); NEUT % 70.2 % (47.0-73.0); PLATELET COUNT AUTOMATED 275 10*3/uL (130-400); RED BLOOD COUNT 4.88 10*6/uL (4.10-5.10); WHITE BLOOD COUNT 11.1 10*3/uL (4.8-10.8)
[2017-09-07 12:33] LABS: ALKALINE PHOSPHATASE 163 U/L (45-117); BUN 17 mg/dl (7-24); CHLORIDE 100 mmol/L (98-107); CHOLESTEROL 164 mg/dL (<200); CREATININE 1.03 mg/dL (0.55-1.02); HDL CHOLESTEROL 75 mg/dl (40-60); LDL CHOLESTEROL 67 mg/dL (9-159); POTASSIUM 4.5 mmol/L (3.5-5.1); SGOT/AST 11 IU/L (3-35); SGPT/ALT 21 U/L (12-78); SODIUM 139 mmol/L (136-145); TOTAL PROTEIN 7.1 gm/dL (6.4-8.2); TRIGLYCERIDES 111 mg/dl (<150); VLDL CHOLESTEROL 22 mg/dL (6-40)
[2017-09-07 12:40] LABS: THYROID STIM HORMONE (HS) 0.723 uIU/ml (0.358-4.75)
== END | disposition home or self-care (01) ==
LOC: LAB 11:32
PROVIDERS: Nurse Practitioner Family
DX: I10 Essential (primary) hypertension (principal); J44.9 Chronic obstructive pulmonary disease, unspecified; E78.4 Other hyperlipidemia; E03.9 Hypothyroidism, unspecified

== ENCOUNTER → 2018-01-25 | Outpatient (CLI) | payer MEDICARE, MEDICAID ==
[~2018-01-25] MED LIST changes: +CLINDAMYCIN150 MG PO; +TRAMADOL HCL50 MG PO
== END | disposition home or self-care (01) ==
LOC: RAD 15:07
DX: M25.572 Pain in left ankle and joints of left foot (principal); G89.29 Other chronic pain; J43.9 Emphysema, unspecified; Z79.899 Other long term (current) drug therapy; Z86.711 Personal history of pulmonary embolism

== ENCOUNTER 2018-04-23 02:02 | Emergency (ER) | payer MEDICARE, MEDICAID ==
[~2018-04-23] VITALS: Ht 160 cm; Wt 137.4 kg
[2018-04-23] MEDS ORDERED: VENTOLIN,PR2 MG/5 ML PO (02:11)
[2018-04-23] MEDS ORDERED: PRADAXA150 MG PO (02:12)
[2018-04-23] MEDS ORDERED: Glipizide2.5 MG PO (02:12)
[2018-04-23] MEDS ORDERED: SINGULAIR10 M1 PO (02:13)
[2018-04-23] MEDS ORDERED: Tobrex Ophth S2.5 ML OPH (03:15)
[2018-04-23] MEDS ORDERED: TESSALON PERLE100 MG PO (03:15)
[2018-04-23] MEDS ORDERED: VIBRAMYCIN100 MG PO (03:15)
== END 2018-04-23 03:42 | disposition home or self-care (01) ==
LOC: ED 02:02
DX: J90 Pleural effusion, not elsewhere classified (principal); J01.90 Acute sinusitis, unspecified; H10.9 Unspecified conjunctivitis; J44.9 Chronic obstructive pulmonary disease, unspecified; K21.9 Gastro-esophageal reflux disease without esophagitis; E03.9 Hypothyroidism, unspecified; I10 Essential (primary) hypertension; E66.01 Morbid (severe) obesity due to excess calories; Z88.1 Allergy status to other antibiotic agents; Z88.8 Allergy status to other drugs, medicaments and biological substances; Z91.011 Allergy to milk products; Z88.0 Allergy status to penicillin; Z91.013 Allergy to seafood; Z79.899 Other long term (current) drug therapy; Z86.718 Personal history of other venous thrombosis and embolism; Z87.891 Personal history of nicotine dependence

== ENCOUNTER → 2018-05-29 | Outpatient (CLI) | payer MEDICARE, MEDICAID ==
[~2018-05-29] MED LIST changes: +Glipizide2.5 MG PO; +SINGULAIR10 M1 PO; +TESSALON PERLE100 MG PO; +Tobrex Ophth S2.5 ML OPH; +VENTOLIN,PR2 MG/5 ML PO
[2018-05-29 16:51] LABS: BASO % 0.5 % (0.0-1.0); EOS # 0.2 10*3/uL (0.0-0.4); EOS % 2.4 % (1.0-4.0); HEMATOCRIT 39.7 % (37.0-47.0); LYMPH # 1.7 10*3/uL (1.3-4.4); LYMPH % 22.5 % (27.0-41.0); MEAN CELL VOLUME 87.1 fl (81.0-99.0); MEAN CORPUSCULAR HGB 26.3 pg (27.0-31.0); MEAN CORPUSCULAR HGB CONC 30.2 g/dl (33.0-37.0); MEAN PLATELET VOLUME 9.8 fl (9.6-12.3); MONO # 0.4 10*3/uL (0.1-1.0); MONO % 5.8 % (3.0-9.0); NEUT # 5.1 10*3/uL (2.3-7.9); NEUT % 68.7 % (47.0-73.0); PLATELET COUNT AUTOMATED 379 10*3/uL (130-400); RED BLOOD COUNT 4.56 10*6/uL (4.10-5.10); RED CELL DISTRI WIDTH 15.2 % (0-14.5); WHITE BLOOD COUNT 7.4 10*3/uL (4.8-10.8)
[2018-05-29 17:14] LABS: ALBUMIN 2.9 gm/dl (3.1-4.5); ALKALINE PHOSPHATASE 140 U/L (45-117); BUN 13 mg/dl (7-24); CHLORIDE 103 mmol/L (98-107); CHOLESTEROL 131 mg/dL (<200); CREATININE 0.97 mg/dL (0.55-1.02); HDL CHOLESTEROL 60 mg/dl (40-60); LDL CHOLESTEROL 40 mg/dL (9-159); POTASSIUM 3.6 mmol/L (3.5-5.1); SGOT/AST 15 IU/L (3-35); SGPT/ALT 17 U/L (12-78); SODIUM 139 mmol/L (136-145); TOTAL PROTEIN 7.5 gm/dL (6.4-8.2); TRIGLYCERIDES 153 mg/dl (<150); VLDL CHOLESTEROL 31 mg/dL (6-40)
== END | disposition home or self-care (01) ==
LOC: LAB 16:27
PROVIDERS: Nurse Practitioner Family
DX: I10 Essential (primary) hypertension (principal); E11.59 Type 2 diabetes mellitus with other circulatory complications; E78.49 Other hyperlipidemia

== ENCOUNTER 2018-10-01 16:13 | Emergency (ER) | payer MEDICARE, MEDICAID ==
[~2018-10-01] VITALS: Ht 162.5 cm; Wt 140.6 kg
[2018-10-01 16:16] VITALS: BP 148/76
[2018-10-01] MEDS ORDERED: BACITRAYCIN PLU28 GM T (16:50)
[2018-10-01] MEDS ORDERED: VIBRAMYCIN100 MG PO (16:50)
== END 2018-10-01 16:55 | disposition home or self-care (01) ==
LOC: ED 16:13
DX: L08.89 Other specified local infections of the skin and subcutaneous tissue (principal); R05 Cough; R07.89 Other chest pain; E66.01 Morbid (severe) obesity due to excess calories; I10 Essential (primary) hypertension; J44.9 Chronic obstructive pulmonary disease, unspecified; K21.9 Gastro-esophageal reflux disease without esophagitis; Z88.1 Allergy status to other antibiotic agents; Z88.8 Allergy status to other drugs, medicaments and biological substances; Z91.013 Allergy to seafood; Z91.011 Allergy to milk products; Z88.0 Allergy status to penicillin; Z79.2 Long term (current) use of antibiotics; Z79.899 Other long term (current) drug therapy; Z79.84 Long term (current) use of oral hypoglycemic drugs; Z87.891 Personal history of nicotine dependence; Z86.718 Personal history of other venous thrombosis and embolism

== ENCOUNTER → 2018-12-06 | Outpatient (CLI) | payer MEDICARE, MEDICAID ==
[~2018-12-06] MED LIST changes: +BACITRAYCIN PLU28 GM T
[2018-12-06 14:58] LABS: BASO % 0.4 % (0.0-1.0); EOS # 0.1 10*3/uL (0.0-0.4); EOS % 1.1 % (1.0-4.0); HEMATOCRIT 39.9 % (37.0-47.0); HEMOGLOBIN 12.2 g/dl (12.0-16.0); LYMPH % 24.4 % (27.0-41.0); MEAN CELL VOLUME 87.9 fl (81.0-99.0); MEAN CORPUSCULAR HGB 26.9 pg (27.0-31.0); MEAN CORPUSCULAR HGB CONC 30.6 g/dl (33.0-37.0); MEAN PLATELET VOLUME 9.8 fl (9.6-12.3); MONO # 0.6 10*3/uL (0.1-1.0); MONO % 6.7 % (3.0-9.0); NEUT # 5.5 10*3/uL (2.3-7.9); NEUT % 67.2 % (47.0-73.0); PLATELET COUNT AUTOMATED 315 10*3/uL (130-400); RED BLOOD COUNT 4.54 10*6/uL (4.10-5.10); RED CELL DISTRI WIDTH 15.9 % (0-14.5); WHITE BLOOD COUNT 8.2 10*3/uL (4.8-10.8)
[2018-12-06 15:30] LABS: ALBUMIN 3.1 gm/dl (3.1-4.5); ALKALINE PHOSPHATASE 161 U/L (45-117); BUN 19 mg/dl (7-24); CHLORIDE 105 mmol/L (98-107); CHOLESTEROL 163 mg/dL (<200); CREATININE 0.83 mg/dL (0.55-1.02); HDL CHOLESTEROL 80 mg/dl (40-60); LDL CHOLESTEROL 69 mg/dL (9-159); POTASSIUM 4.4 mmol/L (3.5-5.1); SGOT/AST 13 IU/L (3-35); SGPT/ALT 23 U/L (12-78); SODIUM 140 mmol/L (136-145); TRIGLYCERIDES 70 mg/dl (<150); VLDL CHOLESTEROL 14 mg/dL (6-40)
== END | disposition home or self-care (01) ==
LOC: LAB 14:24
PROVIDERS: Nurse Practitioner Family
DX: E78.5 Hyperlipidemia, unspecified (principal); E11.59 Type 2 diabetes mellitus with other circulatory complications; E03.8 Other specified hypothyroidism; I10 Essential (primary) hypertension

== ENCOUNTER → 2019-01-24 | Outpatient (CLI) | payer MEDICARE, MEDICAID | END | disposition home or self-care (01) | LOC: CT 15:00 | DX: M19.072 Primary osteoarthritis, left ankle and foot (principal) ==

== ENCOUNTER 2019-05-29 13:34 | Emergency (ER) | payer MEDICARE, MEDICAID ==
[~2019-05-29] VITALS: Ht 165.1 cm; Wt 142.9 kg
[2019-05-29 13:38] VITALS: BP 126/55
[2019-05-29] MEDS ORDERED: ZITHROMAX250 MG PO (15:15)
[2019-05-29] MEDS ORDERED: PREDNISONE50 MG PO (15:15)
== END 2019-05-29 15:44 | disposition home or self-care (01) ==
LOC: ED 13:34
DX: J02.9 Acute pharyngitis, unspecified (principal); R22.0 Localized swelling, mass and lump, head; I10 Essential (primary) hypertension; E11.9 Type 2 diabetes mellitus without complications; J44.9 Chronic obstructive pulmonary disease, unspecified; K21.9 Gastro-esophageal reflux disease without esophagitis; E03.9 Hypothyroidism, unspecified; E66.01 Morbid (severe) obesity due to excess calories; Z88.1 Allergy status to other antibiotic agents; Z88.8 Allergy status to other drugs, medicaments and biological substances; Z91.013 Allergy to seafood; Z91.011 Allergy to milk products; Z88.0 Allergy status to penicillin; Z79.2 Long term (current) use of antibiotics; Z79.899 Other long term (current) drug therapy; Z87.891 Personal history of nicotine dependence; Z86.711 Personal history of pulmonary embolism

== ENCOUNTER → 2019-10-07 | Outpatient (CLI) | payer OTHER, MEDICAID ==
[~2019-10-07] MED LIST changes: +PREDNISONE50 MG PO; +ZITHROMAX250 MG PO
[2019-10-07 15:48] LABS: BASO % 0.4 % (0.0-1.0); EOS # 0.2 10*3/uL (0.0-0.4); EOS % 1.5 % (1.0-4.0); HEMATOCRIT 40.8 % (37.0-47.0); LYMPH # 2.4 10*3/uL (1.3-4.4); LYMPH % 24.1 % (27.0-41.0); MEAN CELL VOLUME 86.1 fl (81.0-99.0); MEAN CORPUSCULAR HGB CONC 31.4 g/dl (33.0-37.0); MEAN PLATELET VOLUME 9.7 fl (9.6-12.3); MONO # 0.6 10*3/uL (0.1-1.0); MONO % 6.1 % (3.0-9.0); NEUT # 6.8 10*3/uL (2.3-7.9); NEUT % 67.7 % (47.0-73.0); PLATELET COUNT AUTOMATED 351 10*3/uL (130-400); RED BLOOD COUNT 4.74 10*6/uL (4.10-5.10); RED CELL DISTRI WIDTH 14.3 % (0-14.5)
[2019-10-07 16:10] LABS: ALBUMIN 3.2 gm/dl (3.1-4.5); ALKALINE PHOSPHATASE 189 U/L (45-117); BUN 15 mg/dl (7-24); CHLORIDE 101 mmol/L (98-107); CHOLESTEROL 148 mg/dL (<200); CREATININE 0.81 mg/dL (0.55-1.02); HDL CHOLESTEROL 74 mg/dl (40-60); LDL CHOLESTEROL 54 mg/dL (9-159); POTASSIUM 4.4 mmol/L (3.5-5.1); SGOT/AST 19 IU/L (3-35); SGPT/ALT 40 U/L (12-78); SODIUM 139 mmol/L (136-145); TOTAL PROTEIN 7.2 gm/dL (6.4-8.2); TRIGLYCERIDES 100 mg/dl (<150); VLDL CHOLESTEROL 20 mg/dL (6-40)
== END | disposition home or self-care (01) ==
LOC: LAB 15:16
PROVIDERS: Nurse Practitioner Family
DX: E11.59 Type 2 diabetes mellitus with other circulatory complications (principal); I10 Essential (primary) hypertension; E55.9 Vitamin D deficiency, unspecified; E66.9 Obesity, unspecified; D64.9 Anemia, unspecified; J30.81 Allergic rhinitis due to animal (cat) (dog) hair and dander; E78.49 Other hyperlipidemia

== ENCOUNTER → 2020-03-11 | Outpatient (CLI) | payer OTHER, MEDICAID ==
--- NOTE | 2020-03-11 15:19 | NUR ---
SPEECH PATHOLOGY Outpatient MBS completed as per orders to assess the pharyngeal phase of the swallow. Medical history is significant for reflux, hiatal hernia, COPD, esophageal erosions, DM, HTN, dysphagia. Patient reports hoarseness and occasional choking with po intake. She consumes a regular diet and thin liquid. Oral exam revealed few teeth which were in poor condition. Lingual/labial and buccal skills were WNL in terms of strength, ROM and coordination. Patient was assessed with puree, solids and thin liquid. Assessment revealed oral and pharyngeal swallowing skills WNL across consistencies. There was no penetration, aspiration or pharyngeal residue. Recommend patient remain on regular diet, follow reflux precautions, which she was educated on and follow up with her printed circuit designer. She was educated on results and andre. and verbalized understanding. Dictated report to follow. Thank you for this referral. ANT BURR [employer]IC[employer] SERVICES MANAGER
== END | disposition home or self-care (01) ==
LOC: RAD/SH 02-25 14:30
PROVIDERS: ATTEND Nurse Practitioner Family
DX: E11.59 Type 2 diabetes mellitus with other circulatory complications (principal); R13.10 Dysphagia, unspecified; I10 Essential (primary) hypertension; J30.81 Allergic rhinitis due to animal (cat) (dog) hair and dander; E03.8 Other specified hypothyroidism; K21.9 Gastro-esophageal reflux disease without esophagitis

== ENCOUNTER → 2020-03-31 | Outpatient (CLI) | payer OTHER, MEDICAID | END | disposition home or self-care (01) | LOC: MAMMO 02-25 15:30 | PROVIDERS: ATTEND Nurse Practitioner Family | DX: Z12.31 Encounter for screening mammogram for malignant neoplasm of breast (principal); N64.89 Other specified disorders of breast ==

== ENCOUNTER 2020-10-28 05:43 | Inpatient (IN) | payer OTHER, MEDICAID ==
[~2020-10-28] VITALS: Ht 160 cm; Wt 151.0 kg
[2020-10-28 05:49] VITALS: BP 126/58
[2020-10-28 06:06] LABS: BASO % 0.4 % (0.0-1.0); EOS # 0.1 10*3/uL (0.0-0.4); EOS % 1.1 % (1.0-4.0); HEMATOCRIT 41.4 % (37.0-47.0); LYMPH # 1.4 10*3/uL (1.3-4.4); LYMPH % 15.5 % (27.0-41.0); MEAN CELL VOLUME 85.5 fl (81.0-99.0); MEAN CORPUSCULAR HGB CONC 30.4 g/dl (33.0-37.0); MEAN PLATELET VOLUME 10.2 fl (9.6-12.3); MONO # 0.6 10*3/uL (0.1-1.0); MONO % 6.3 % (3.0-9.0); NEUT # 6.8 10*3/uL (2.3-7.9); NEUT % 75.4 % (47.0-73.0); PLATELET COUNT AUTOMATED 374 10*3/uL (130-400); RED BLOOD COUNT 4.84 10*6/uL (4.10-5.10); RED CELL DISTRI WIDTH 17.2 % (0-14.5); WHITE BLOOD COUNT 9.1 10*3/uL (4.8-10.8)
[2020-10-28 06:33] LABS: ALBUMIN 3.2 gm/dl (3.1-4.5); CREATININE 1.43 mg/dL (0.55-1.02); POTASSIUM 3.8 mmol/L (3.5-5.1); TOTAL PROTEIN 7.3 gm/dL (6.4-8.2)
[2020-10-28 10:45] VITALS: BP 131/55
[2020-10-28 14:26] LABS: BILIRUBIN Negative (Negative); BLOOD Negative (Negative); CLARITY Turbid (Clear); COLOR Dark Yellow (Yellow); GLUCOSE Negative (Negative); KETONE Trace (Negative); LEUKO ESTERASE Trace (Negative); NITRITE Negative (Negative); SPECIFIC GRAVITY 1.025 (1.001-1.030)
[2020-10-28 14:50] LABS: BACTERIA 2+; COARSE GRANULAR CAST 0-2; EPITHELIAL CELLS 16-20; FINE GRANULAR CAST 0-2; MUCOUS 2+
[2020-10-28 19:40] VITALS: BP 148/75
[2020-10-28] MEDS ORDERED: PRADAXA150 MG PO (20:48)
[2020-10-28] MEDS ORDERED: KLOR-CON M2020 ME1 PO (20:49)
[2020-10-28] MEDS ORDERED: ADVAIR 250/501 EA INH (20:53)
[2020-10-28] MEDS ORDERED: DULOXETINE HCL30 MG PO (21:01)
[2020-10-28] MEDS ORDERED: GABAPENTIN100 M2 PO ×2 (21:02→21:03)
[2020-10-28] MEDS ORDERED: FERROUS GLUCON324 MG PO (21:02)
[2020-10-28] MEDS ORDERED: ZYRTEC ALLERGY10 MG PO (21:04)
[2020-10-28] MEDS ORDERED: PEPCID40 MG PO (21:05)
[2020-10-28] MEDS ORDERED: OMEPRAZOLE MAGN20 MG PO (21:05)
[2020-10-29] VITALS: BP 154/72
[2020-10-29 06:29] LABS: BASO % 0.4 % (0.0-1.0); EOS # 0.1 10*3/uL (0.0-0.4); EOS % 0.8 % (1.0-4.0); LYMPH # 1.2 10*3/uL (1.3-4.4); LYMPH % 13.5 % (27.0-41.0); MEAN CELL VOLUME 86.1 fl (81.0-99.0); MEAN CORPUSCULAR HGB 26.5 pg (27.0-31.0); MEAN CORPUSCULAR HGB CONC 30.7 g/dl (33.0-37.0); MEAN PLATELET VOLUME 10.4 fl (9.6-12.3); MONO # 0.7 10*3/uL (0.1-1.0); MONO % 7.1 % (3.0-9.0); NEUT # 7.1 10*3/uL (2.3-7.9); NEUT % 77.8 % (47.0-73.0); PLATELET COUNT AUTOMATED 316 10*3/uL (130-400); RED BLOOD COUNT 4.76 10*6/uL (4.10-5.10); RED CELL DISTRI WIDTH 17.2 % (0-14.5); WHITE BLOOD COUNT 9.2 10*3/uL (4.8-10.8)
[2020-10-29 06:49] LABS: ACT PARTIAL THROMBO TIME 30.8 SECONDS (20.0-32.1); INTERNATIONAL NORM RATIO 1.1 (2.0-3.5)
[2020-10-29 06:54] LABS: ALBUMIN 2.8 gm/dl (3.1-4.5); ALKALINE PHOSPHATASE 132 U/L (45-117); BUN 12 mg/dl (7-24); CHLORIDE 102 mmol/L (98-107); CHOLESTEROL 140 mg/dL (<200); CREATININE 0.91 mg/dL (0.55-1.02); FREE T4 0.93 ng/dl (0.76-1.46); LDL CHOLESTEROL 63 mg/dL (9-159); POTASSIUM 4.1 mmol/L (3.5-5.1); SGOT/AST 11 IU/L (3-35); SGPT/ALT 20 U/L (12-78); SODIUM 137 mmol/L (136-145); TRIGLYCERIDES 76 mg/dl (<150)
[2020-10-29] MEDS ORDERED: ZOFRAN4 MG PO (07:34)
[2020-10-29 08:00] VITALS: BP 150/61
[2020-10-29 08:13] LABS: VITAMIN D, 25-HYDROXY 18.6 ng/mL (30-100)
== END 2020-10-29 11:52 | disposition home or self-care (01) | DRG 391 ==
LOC: ED 05:43 → EDHOLD 08:57 → 4E 08:57 → EDHOLD 08:57 → 4E 17:48
PROVIDERS: Internal Medicine; ADMIT Internal Medicine; ATTEND Internal Medicine
DX: K52.9 Noninfective gastroenteritis and colitis, unspecified (principal); N17.0 Acute kidney failure with tubular necrosis; Z68.43 Body mass index [BMI] 50.0-59.9, adult; J44.9 Chronic obstructive pulmonary disease, unspecified; E66.01 Morbid (severe) obesity due to excess calories; G25.81 Restless legs syndrome; I10 Essential (primary) hypertension; E55.9 Vitamin D deficiency, unspecified; E86.0 Dehydration; K21.9 Gastro-esophageal reflux disease without esophagitis; E03.9 Hypothyroidism, unspecified; E11.42 Type 2 diabetes mellitus with diabetic polyneuropathy; K57.90 Diverticulosis of intestine, part unspecified, without perforation or abscess without bleeding; Z86.711 Personal history of pulmonary embolism; Z88.8 Allergy status to other drugs, medicaments and biological substances; Z88.1 Allergy status to other antibiotic agents; Z81.1 Family history of alcohol abuse and dependence; Z91.011 Allergy to milk products; Z88.0 Allergy status to penicillin; Z91.013 Allergy to seafood; Z90.721 Acquired absence of ovaries, unilateral; Z98.51 Tubal ligation status; Z82.49 Family history of ischemic heart disease and other diseases of the circulatory system; Z86.718 Personal history of other venous thrombosis and embolism; Z83.3 Family history of diabetes mellitus; E11.65 Type 2 diabetes mellitus with hyperglycemia

== ENCOUNTER 2021-02-15 01:53 | Emergency (ER) | payer OTHER, MEDICAID ==
[~2021-02-15] VITALS: Ht 160 cm; Wt 148.8 kg
[~2021-02-15 01:53] MED LIST changes: +ADVAIR 250/501 EA INH; +DULOXETINE HCL30 MG PO; +FERROUS GLUCON324 MG PO; +KLOR-CON M2020 ME1 PO; +OMEPRAZOLE MAGN20 MG PO; +PEPCID40 MG PO; +ZOFRAN4 MG PO; +ZYRTEC ALLERGY10 MG PO
[2021-02-15 02:36] LABS: BASO % 0.2 % (0.0-1.0); EOS % 0.3 % (1.0-4.0); HEMATOCRIT 45.9 % (37.0-47.0); LYMPH # 0.6 10*3/uL (1.3-4.4); MEAN CELL VOLUME 86.4 fl (81.0-99.0); MEAN CORPUSCULAR HGB 26.6 pg (27.0-31.0); MEAN CORPUSCULAR HGB CONC 30.7 g/dl (33.0-37.0); MEAN PLATELET VOLUME 9.5 fl (9.6-12.3); MONO # 0.4 10*3/uL (0.1-1.0); MONO % 4.6 % (3.0-9.0); NEUT # 8.4 10*3/uL (2.3-7.9); NEUT % 88.5 % (47.0-73.0); PLATELET COUNT AUTOMATED 326 10*3/uL (130-400); RED BLOOD COUNT 5.31 10*6/uL (4.10-5.10); RED CELL DISTRI WIDTH 16.2 % (0-14.5); WHITE BLOOD COUNT 9.5 10*3/uL (4.8-10.8)
[2021-02-15 02:51] LABS: ALBUMIN 3.2 gm/dl (3.1-4.5); CREATININE 1.28 mg/dL (0.55-1.02); POTASSIUM 4.2 mmol/L (3.5-5.1); TOTAL PROTEIN 7.8 gm/dL (6.4-8.2)
[2021-02-15 03:07] VITALS: BP 138/70
[2021-02-15] MEDS ORDERED: ZOFRAN4 MG PO (04:05)
== END 2021-02-15 04:34 | disposition home or self-care (01) ==
LOC: ED 01:53
PROVIDERS: Internal Medicine
DX: K52.9 Noninfective gastroenteritis and colitis, unspecified (principal); K57.30 Diverticulosis of large intestine without perforation or abscess without bleeding; R11.2 Nausea with vomiting, unspecified; N18.32 Chronic kidney disease, stage 3b; E66.9 Obesity, unspecified; Z88.1 Allergy status to other antibiotic agents; Z88.8 Allergy status to other drugs, medicaments and biological substances; Z91.013 Allergy to seafood; Z91.011 Allergy to milk products; Z88.0 Allergy status to penicillin; Z79.899 Other long term (current) drug therapy; Z98.890 Other specified postprocedural states; Z87.891 Personal history of nicotine dependence

== ENCOUNTER → 2021-04-01 | Outpatient (CLI) | payer OTHER, MEDICAID | END | disposition home or self-care (01) | LOC: RAD 14:57 | PROVIDERS: ATTEND Nurse Practitioner Family | DX: J90 Pleural effusion, not elsewhere classified (principal); J44.9 Chronic obstructive pulmonary disease, unspecified ==

== ENCOUNTER → 2021-09-27 | Outpatient (CLI) | payer OTHER, MEDICAID | END | disposition home or self-care (01) | LOC: US 08-11 14:00 | PROVIDERS: ATTEND Nurse Practitioner Family | DX: R93.89 Abnormal findings on diagnostic imaging of other specified body structures (principal); R63.4 Abnormal weight loss; N95.0 Postmenopausal bleeding; Z68.43 Body mass index [BMI] 50.0-59.9, adult ==

== ENCOUNTER → 2021-11-12 | Outpatient (CLI) | payer OTHER, MEDICAID ==
[2021-11-12 15:29] LABS: BASO % 0.6 % (0.0-1.0); EOS # 0.1 10*3/uL (0.0-0.4); HEMATOCRIT 40.7 % (37.0-47.0); LYMPH # 1.7 10*3/uL (1.3-4.4); LYMPH % 25.8 % (27.0-41.0); MEAN CORPUSCULAR HGB 26.1 pg (27.0-31.0); MEAN CORPUSCULAR HGB CONC 30.7 g/dl (33.0-37.0); MEAN PLATELET VOLUME 9.7 fl (9.6-12.3); MONO # 0.5 10*3/uL (0.1-1.0); MONO % 7.7 % (3.0-9.0); NEUT # 4.2 10*3/uL (2.3-7.9); NEUT % 63.4 % (47.0-73.0); PLATELET COUNT AUTOMATED 350 10*3/uL (130-400); RED BLOOD COUNT 4.79 10*6/uL (4.10-5.10); RED CELL DISTRI WIDTH 16.6 % (0-14.5); WHITE BLOOD COUNT 6.6 10*3/uL (4.8-10.8)
[2021-11-12 15:50] LABS: ALKALINE PHOSPHATASE 164 U/L (45-117); BUN 10 mg/dl (7-24); CHLORIDE 107 mmol/L (98-107); CREATININE 1.05 mg/dL (0.55-1.02); SGOT/AST 17 IU/L (3-35); SGPT/ALT 22 U/L (12-78); SODIUM 139 mmol/L (136-145); TOTAL PROTEIN 7.2 gm/dL (6.4-8.2)
== END ==
LOC: LAB 14:53
PROVIDERS: ATTEND Physician Assistant Medical
DX: E11.319 Type 2 diabetes mellitus with unspecified diabetic retinopathy without macular edema (principal); J43.9 Emphysema, unspecified; I51.7 Cardiomegaly; R94.31 Abnormal electrocardiogram [ECG] [EKG]; Z01.818 Encounter for other preprocedural examination

== ENCOUNTER 2021-12-03 18:24 | Emergency (ER) | payer OTHER, MEDICAID ==
[~2021-12-03] VITALS: Ht 160 cm; Wt 142.9 kg
[2021-12-03 18:50] VITALS: BP 142/54
[2021-12-03] MEDS ORDERED: NAPROXEN250 MG PO (20:09)
== END 2021-12-03 20:18 | disposition home or self-care (01) ==
LOC: ED 18:24
DX: S60.222A Contusion of left hand, initial encounter (principal); Z88.1 Allergy status to other antibiotic agents; Z88.8 Allergy status to other drugs, medicaments and biological substances; Z88.0 Allergy status to penicillin; Z79.899 Other long term (current) drug therapy; Z87.891 Personal history of nicotine dependence; Z98.51 Tubal ligation status; W06.XXXA Fall from bed, initial encounter; Y93.89 Activity, other specified; Y92.89 Other specified places as the place of occurrence of the external cause; Y99.8 Other external cause status

== ENCOUNTER → 2022-02-02 | Outpatient (CLI) | payer OTHER, MEDICAID ==
[~2022-02-02] MED LIST changes: +NAPROXEN250 MG PO
== END | disposition home or self-care (01) ==
LOC: RAD 13:36
PROVIDERS: ATTEND Nurse Practitioner Family
DX: U07.1 COVID-19 (principal)

== ENCOUNTER 2022-08-07 19:11 | Emergency (ER) | payer OTHER, MEDICAID ==
[~2022-08-07] VITALS: Ht 160 cm; Wt 140.6 kg
[2022-08-07 19:41] VITALS: BP 154/69
== END 2022-08-07 22:30 | disposition home or self-care (01) ==
LOC: ED 19:11
DX: S16.1XXA Strain of muscle, fascia and tendon at neck level, initial encounter (principal); S09.90XA Unspecified injury of head, initial encounter; Z88.1 Allergy status to other antibiotic agents; Z91.011 Allergy to milk products; Z91.013 Allergy to seafood; Z91.018 Allergy to other foods; V49.50XA Passenger injured in collision with unspecified motor vehicles in traffic accident, initial encounter; Y93.89 Activity, other specified; Y92.410 Unspecified street and highway as the place of occurrence of the external cause; Y99.8 Other external cause status

== ENCOUNTER → 2023-01-24 | Outpatient (CLI) | payer MEDICARE, MEDICAID ==
[2023-01-24 15:23] LABS: BASO % 0.3 % (0.0-1.0); EOS # 0.2 10*3/uL (0.0-0.4); EOS % 2.5 % (1.0-4.0); HEMATOCRIT 36.4 % (37.0-47.0); LYMPH # 1.8 10*3/uL (1.3-4.4); LYMPH % 27.8 % (27.0-41.0); MEAN CELL VOLUME 83.3 fl (81.0-99.0); MEAN CORPUSCULAR HGB 25.6 pg (27.0-31.0); MEAN CORPUSCULAR HGB CONC 30.8 g/dl (33.0-37.0); MEAN PLATELET VOLUME 9.5 fl (9.6-12.3); MONO # 0.6 10*3/uL (0.1-1.0); MONO % 8.6 % (3.0-9.0); NEUT # 3.9 10*3/uL (2.3-7.9); NEUT % 60.5 % (47.0-73.0); PLATELET COUNT AUTOMATED 302 10*3/uL (130-400); RED BLOOD COUNT 4.37 10*6/uL (4.10-5.10); RED CELL DISTRI WIDTH 17.4 % (0-14.5); WHITE BLOOD COUNT 6.5 10*3/uL (4.8-10.8)
== END | disposition home or self-care (01) ==
LOC: LAB 14:44
PROVIDERS: ATTEND Nurse Practitioner Family
DX: K21.9 Gastro-esophageal reflux disease without esophagitis (principal); E11.59 Type 2 diabetes mellitus with other circulatory complications; R41.3 Other amnesia; J30.81 Allergic rhinitis due to animal (cat) (dog) hair and dander; I10 Essential (primary) hypertension; J44.9 Chronic obstructive pulmonary disease, unspecified

== ENCOUNTER → 2023-01-30 | Outpatient (CLI) | payer OTHER, MEDICAID | END | disposition home or self-care (01) | LOC: CT 11:00 | PROVIDERS: ATTEND Nurse Practitioner Family | DX: I67.82 Cerebral ischemia (principal); K21.9 Gastro-esophageal reflux disease without esophagitis; E11.59 Type 2 diabetes mellitus with other circulatory complications; R41.3 Other amnesia; J30.81 Allergic rhinitis due to animal (cat) (dog) hair and dander; I10 Essential (primary) hypertension; J44.9 Chronic obstructive pulmonary disease, unspecified ==